=== PATIENT | male | born 1980 | race Caucasian/White ===

== ENCOUNTER 2022-03-05 10:50 | Inpatient (IN) ==
[2022-03-05 11:50] LABS: Basophils # (auto) 0.07 K/uL (0-0.2); Basophils % (auto) 0.5 %; Eosinophils # (auto) 0.14 K/uL (0-0.50); Eosinophils % (auto) 1.1 %; Hematocrit (blood only) 46.6 % (40.1-51.0); Hemoglobin 15.5 g/dl (14.0-18.0); Immature Granulocytes # (auto) 0.04 K/uL (0.00-0.02); Immature Granulocytes % (auto) 0.3 %; Lymphocytes # (auto) 1.73 K/uL (1.2-3.4); Lymphocytes % (auto) 13.1 %; Mean Corpuscular Hemoglobin 28.8 pg (25.0-34.0); Mean Corpuscular Hgb Conc 33.3 g/dL (32.0-36.0); Mean Corpuscular Volume 86.6 fL (80.0-100.0); Mean Platelet Volume 9.4 fL (9.4-12.4); Monocytes # (auto) 1.06 K/uL (0.24-0.82); Neutrophils # (auto) 10.19 K/uL (1.4-6.5); Platelet Count 417 K/uL (130-400); RDW Coefficient of Variation 12.4 % (11.5-14.5); RDW Standard Deviation 39.4 fL (36.4-46.3); Red Blood Count 5.38 M/uL (4.63-6.08); White Blood Count 13.23 K/ul (4.8-10.8)
--- NOTE | 2022-03-05 11:51 | XRay Report ---
XR chest 2V PA/lateral HISTORY: 42 years-old Male Chest pain, nonspecific acute chest pain COMPARISON: Chest radiograph 02/02/2022 TECHNIQUE: PA and lateral views of the chest FINDINGS: Mild left hemidiaphragmatic elevation again noted. Mild gaseous distention of the stomach. Moderate c ardiomegaly. Trace pleural effusions. No pneumothorax. Mild bibasilar densities and linear left midlu ng opacity. The previously questioned 1.3 center meter nodule of the right midlung is not identified. Degenerative changes of the shoulders and spine. IMPRESSION: 1. Cardiomegaly without overt pulmonary edema. 2. Trace pleural effusions with mild bibasilar and left midlung opacities suggestive of probable atel ectasis. 3. Mild left hemidiaphragmatic elevation. ACT 112: Negative or not required by law. The above report was generated using voice recognition software. It may contain grammatical, syntax o r spelling errors. Electronically signed by: Jn Rodrigues M.D. 03/05/2022 11:49 AM
[2022-03-05 12:08] LABS: D Dimer 2390 ug/L FEU (0-500)
[2022-03-05 12:12] LABS: Albumin Globulin Ratio 1.1 (0.9-2); Albumin Level 4.1 gm/dl (3.4-5.0); BUN Creatinine Ratio 14.1 (10-20); Bilirubin,Total 0.7 mg/dl (0.2-1.0); Calcium 9.7 mg/dl (8.5-10.1); Creatinine Clr Calc Pharmacy 121.6 ml/min; Est GFR (African American) 122.8 ml/min; Globulin 3.9 gm/dl (2.5-4.0); Potassium 4.1 mmol/L (3.5-5.1)
[2022-03-05 12:16] LABS: Troponin I High Sensitivity 3.4 pg/ml (0-20)
[2022-03-05 12:34] LABS: Influenza A virus by PCR Negative (Neg); Influenza B virus by PCR Negative (Neg); RSV by PCR Negative (Neg); SARS CoV2 RNA(COVID-19) Ceph NEGATIVE (Negative)
[2022-03-05] MEDS ORDERED: SODIUM CHLORIDE 0.9% 1000ML 1,000 ML IV ONE (12:49)
[2022-03-05] MEDS ORDERED: ONDANSETRON INJ 2 MG/ML 2 ML VIAL IV STA (12:49)
[2022-03-05] MEDS ORDERED: fentaNYL citrate 100 MCG/2 ML VIAL IV STA (12:49)
[2022-03-05] MEDS ORDERED: ACETAMINOPHEN 1,000 MG/100 ML VIAL IV STA (12:51)
--- NOTE | 2022-03-05 13:05 | Electrocardiogram Report ---
Test Reason : Blood Pressure : / mmHG Vent. Rate : 107 BPM Atrial Rate : 107 BPM P-R Int : 126 ms QRS Dur : 074 ms QT Int : 312 ms P-R-T Axes : 013 031 035 degrees QTc Int : 416 ms Sinus tachycardia Otherwise normal ECG When compared with ECG of 02-FEB-2022 13:38, No significant change was found Confirmed by Semaj Garcia ([id number]) on 03/05/2022 1:04:57 PM Referred By: ED Confirmed By:Haroldo Garcia
[2022-03-05] MEDS ORDERED: OPTIRAY 320 500ml IV ONE (13:10)
[2022-03-05] MEDS ORDERED: KETOROLAC 30 MG/ML VIAL IV STA (13:12)
[2022-03-05] MEDS ORDERED: HYDROmorphone INJ 0.5 MG/0.5 ML SYR IV STA (13:12)
[2022-03-05] MEDS ORDERED: AMPICILLIN/SULBACTAM SOD 3,000 MG in 0.9 % SODIUM CHLORIDE 100 ML IV STA (13:18)
--- NOTE | 2022-03-05 13:35 | Emergency Department Note ---
Impression & Plan Pneumonia, Tachycardia, Pleural effusion ED Provider Note CHIEF COMPLAINT: Left-sided chest pain HISTORY OF PRESENT ILLNESS: This 42-year-old male patient presents to the emergency department with complaints of left-sided chest pain that is most significant with deep breathing or coughing. Patient states he has been constipated for the last several days and been using laxatives without any improvement. He first noticed the discomfort in the left upper quadrant or left lower chest. Over the course of the last week the symptoms have gotten much worse now a 9/10. He has been unable to sleep, getting only an hour or 2 at a time. He sits upright as laying back hurts much more. He denies any significant fevers, vomiting or pain to touch. He states the pain is now radiating across the chest and into the shoulder blades. REVIEW OF SYSTEMS: A review of systems was performed with positives and pertinent negatives listed in the history of present illness. 10 systems were reviewed and are otherwise negative. ALLERGIES: see below MEDICATIONS: see below PMH: see below SOCIAL HISTORY: see below DDx: Cardiac ischemia, aortic dissection, pulmonary embolism, pneumothorax, pneumonia, pericarditis, myocarditis, esophageal rupture, GERD, cholecystitis, pancreatitis, musculoskeletal, as well as other pathologies. PHYSICAL EXAM: Vital signs reviewed. General: Somewhat ill-appearing 42 yo male, in no significant distress. HEENT: No scleral icterus, PERRLA, neck supple. Moist mucous membrane Cardiovascular: Tachycardic and regular, no extra sounds Pulmonary: Coarse breath sounds bilaterally, most significant at the left base. Splinting with deep inspiration and cough. Abdomen: Soft, nontender, nondistended, positive bowel sounds. Musculoskeletal: Atraumatic, no peripheral edema. Nontender to palpation over the chest wall and abdomen. No CVA tenderness. Neurologic: Patient awake alert and oriented x 3 Skin: Warm, dry, no rash EMERGENCY DEPARTMENT COURSE/MDM: This patient was evaluated and appeared to be in significant discomfort. IV access was obtained and laboratory work was drawn. The patient was placed on the panel monitor and noted to be in a sinus tachycardia. He was hydrated with normal saline solution, given IV acetaminophen, IV fentanyl and IV Zofran. CT imaging of the chest was performed and is read as pneumonia versus aspiration pneumonitis and pleural effusion on the left. Patient required additional pain medication and was having difficulty sitting still. Was given IV Dilaudid and Toradol upon his return. Blood cultures and lactate were performed and he was medicated with IV Unasyn after consultation with clinical pharmacist. Patient is a former smoker but quit several years ago. Patient is patient will require hospitalization for oxygen, pain medication and antibiotics. MONITORING: An order for cardiac monitoring was placed and the patient is noted to be in a sinus tachycardia at 112 beats per minute. RADIOLOGY: See below EKG: Sinus tachycardia [address] segments. No PVC, no PAC. QTc is 416. No significant change from previous dated 02/02/2022 DISPOSITION: Admit Past Med/Surg History Medical History Former tobacco use IBS (irritable bowel syndrome) Lactose intolerance Surgical History S/P hernia surgery Family History Grandmother (Maternal) Breast cancer Denies family history of Lung cancer Lung disease Social History Smoking Status: Former smoker Tobacco Type: Cigarettes Second Hand Exposure: No; Do You Dip or Chew Tobacco: No; Tobacco Cessation Education Requested by Patient: No Hx Alcohol Use: No Hx Substance Use: No Preferred Language: Haitian Communication Ability: Effective Tub Washer Required: No Beliefs That Will Affect Care: None Current Living Situation: Alone current occupational status: employed 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 Other Information That Helps Us Care for You: No Feels Safe at Home: Yes Safety Concerns: Feels Safe At This Time Assistive Devices: None Allergies Allergies Allergy/AdvReac Type Severity Reaction Status Date / Time cefepime Allergy Severe Hives Uncoded 03/05/22 18:32 Home Meds Previous Rx's Medication Instructions Recorded aztreonam 2 gram solution for 2 g IV Q8H #10 ea 03/05/22 injection doxycycline hyclate 100 mg 100 mg IV Q12H 10 days #10 ea 03/05/22 intravenous powder for solution Results & Data (ED) Vital Signs Vital Signs - 24 hr 03/05/22 11:06 03/05/22 13:08 03/05/22 13:30 Temperature 36.7 C Temperature Source Temporal Artery Scan Pulse Rate 110 H 118 H 112 H Pulse Rate from SpO2 Sensor 118 H 113 H Respiratory Rate 20 28 H 32 H Respiratory Effort / Characteristics Non-Labored Respiratory Depth Normal Blood Pressure 140/101 H 167/106 H Blood Pressure Mean 114 126 Pulse Oximetry 97 89 L 94 Oxygen Delivery Method Room Air Room Air Nasal Cannula Oxygen Flow Rate 3 Sepsis Recent Fever Within 48 Hours No Sepsis New/Unexplained Change in Mental Status N/A Sepsis Action Taken by Nursing No Action Required Home Medications Current Medication List: was personally reviewed by me Laboratory Data Attestation: I reviewed the patient's lab results. Result diagrams: 03/05/22 11:20 03/05/22 11:20 Lab Results 03/05/22 03/05/22 03/05/22 Range/Units 11:15 11:20 11:20 WBC 13.23 H (4.8-10.8) K/ul RBC 5.38 (4.63-6.08) M/uL Hgb 15.5 (14.0-18.0) g/dl Hct 46.6 (40.1-51.0) % MCV 86.6 (80.0-100.0) fL MCH 28.8 (25.0-34.0) pg MCHC 33.3 (32.0-36.0) g/dL RDW Std Deviation 39.4 (36.4-46.3) fL RDW Coeff of Fausto 12.4 (11.5-14.5) % Plt Count 417 H (130-400) K/uL MPV 9.4 (9.4-12.4) fL Immature Gran % (Auto) 0.3 % Neut % (Auto) 77.0 % Lymph % (Auto) 13.1 % Kleberg % (Auto) 8.0 % Eos % (Auto) 1.1 % Baso % (Auto) 0.5 % Neut # (Auto) 10.19 H (1.4-6.5) K/uL Lymph # (Auto) 1.73 (1.2-3.4) K/uL Kleberg # (Auto) 1.06 H (0.24-0.82) K/uL Eos # (Auto) 0.14 (0-0.50) K/uL Baso # (Auto) 0.07 (0-0.2) K/uL Immature Gran # (Auto) 0.04 H (0.00-0.02) K/uL D-Dimer (0-500) ug/L FEU Sodium 141 (136-145) mmol/L Potassium 4.1 (3.5-5.1) mmol/L Chloride 104 (98-107) mmol/L Carbon Dioxide 28 (21-32) mmol/L Anion Gap 9 (3-11) BUN 12 (6-23) mg/dl Creatinine 0.85 (0.6-1.4) mg/dl Est Cr Clr Drug Dosing 121.6 ml/min Est GFR ( Amer) 122.8 ml/min Est GFR (Non-Af Amer) 106.0 ml/min BUN/Creatinine Ratio 14.1 (10-20) Glucose 101 H (70-99(Fasting)) mg/dl Lactate (0.4-2.0) mmol/L Calcium 9.7 (8.5-10.1) mg/dl Total Bilirubin 0.7 (0.2-1.0) mg/dl AST 13 (13-39) U/L ALT 22 (7-52) U/L Alkaline Phosphatase 135 H (34-104) U/L Troponin I High Sens 3.4 (0-20) pg/ml Total Protein 8.0 (6.0-8.3) gm/dl Albumin 4.1 (3.4-5.0) gm/dl Globulin 3.9 (2.5-4.0) gm/dl Albumin/Globulin Ratio 1.1 (0.9-2) Procalcitonin (0-0.5) ng/ml SARS-CoV-2 (PCR) NEGATIVE (Negative) Influenza Type A (PCR) Negative (Neg) Influenza Type B (PCR) Negative (Neg) RSV (RT-PCR) Negative (Neg) Bld Cult ID Panel PCR (NotDetected) 03/05/22 03/05/22 03/05/22 Range/Units 11:20 11:20 14:44 WBC (4.8-10.8) K/ul RBC (4.63-6.08) M/uL Hgb (14.0-18.0) g/dl Hct (40.1-51.0) % MCV (80.0-100.0) fL MCH (25.0-34.0) pg MCHC (32.0-36.0) g/dL RDW Std Deviation (36.4-46.3) fL RDW Coeff of Fausto (11.5-14.5) % Plt Count (130-400) K/uL MPV (9.4-12.4) fL Immature Gran % (Auto) % Neut % (Auto) % Lymph % (Auto) % Kleberg % (Auto) % Eos % (Auto) % Baso % (Auto) % Neut # (Auto) (1.4-6.5) K/uL Lymph # (Auto) (1.2-3.4) K/uL Kleberg # (Auto) (0.24-0.82) K/uL Eos # (Auto) (0-0.50) K/uL Baso # (Auto) (0-0.2) K/uL Immature Gran # (Auto) (0.00-0.02) K/uL D-Dimer 2390 H* (0-500) ug/L FEU Sodium (136-145) mmol/L Potassium (3.5-5.1) mmol/L Chloride (98-107) mmol/L Carbon Dioxide (21-32) mmol/L Anion Gap (3-11) BUN (6-23) mg/dl Creatinine (0.6-1.4) mg/dl Est Cr Clr Drug Dosing ml/min Est GFR ( Amer) ml/min Est GFR (Non-Af Amer) ml/min BUN/Creatinine Ratio (10-20) Glucose (70-99(Fasting)) mg/dl Lactate 0.8 (0.4-2.0) mmol/L Calcium (8.5-10.1) mg/dl Total Bilirubin (0.2-1.0) mg/dl AST (13-39) U/L ALT (7-52) U/L Alkaline Phosphatase (34-104) U/L Troponin I High Sens (0-20) pg/ml Total Protein (6.0-8.3) gm/dl Albumin (3.4-5.0) gm/dl Globulin (2.5-4.0) gm/dl Albumin/Globulin Ratio (0.9-2) Procalcitonin < 0.05 (0-0.5) ng/ml SARS-CoV-2 (PCR) (Negative) Influenza Type A (PCR) (Neg) Influenza Type B (PCR) (Neg) RSV (RT-PCR) (Neg) Bld Cult ID Panel PCR (NotDetected) 03/05/22 Range/Units 14:44 WBC (4.8-10.8) K/ul RBC (4.63-6.08) M/uL Hgb (14.0-18.0) g/dl Hct (40.1-51.0) % MCV (80.0-100.0) fL MCH (25.0-34.0) pg MCHC (32.0-36.0) g/dL RDW Std Deviation (36.4-46.3) fL RDW Coeff of Fausto (11.5-14.5) % Plt Count (130-400) K/uL MPV (9.4-12.4) fL Immature Gran % (Auto) % Neut % (Auto) % Lymph % (Auto) % Kleberg % (Auto) % Eos % (Auto) % Baso % (Auto) % Neut # (Auto) (1.4-6.5) K/uL Lymph # (Auto) (1.2-3.4) K/uL Kleberg # (Auto) (0.24-0.82) K/uL Eos # (Auto) (0-0.50) K/uL Baso # (Auto) (0-0.2) K/uL Immature Gran # (Auto) (0.00-0.02) K/uL D-Dimer (0-500) ug/L FEU Sodium (136-145) mmol/L Potassium (3.5-5.1) mmol/L Chloride (98-107) mmol/L Carbon Dioxide (21-32) mmol/L Anion Gap (3-11) BUN (6-23) mg/dl Creatinine (0.6-1.4) mg/dl Est Cr Clr Drug Dosing ml/min Est GFR ( Amer) ml/min Est GFR (Non-Af Amer) ml/min BUN/Creatinine Ratio (10-20) Glucose (70-99(Fasting)) mg/dl Lactate (0.4-2.0) mmol/L Calcium (8.5-10.1) mg/dl Total Bilirubin (0.2-1.0) mg/dl AST (13-39) U/L ALT (7-52) U/L Alkaline Phosphatase (34-104) U/L Troponin I High Sens (0-20) pg/ml Total Protein (6.0-8.3) gm/dl Albumin (3.4-5.0) gm/dl Globulin (2.5-4.0) gm/dl Albumin/Globulin Ratio (0.9-2) Procalcitonin (0-0.5) ng/ml SARS-CoV-2 (PCR) (Negative) Influenza Type A (PCR) (Neg) Influenza Type B (PCR) (Neg) RSV (RT-PCR) (Neg) Bld Cult ID Panel PCR PCR Panel Negative (NotDetected) Administered Medications Discontinued Medications Acetaminophen (Acetaminophen 500 Mg Tab) 1,000 mg PO Q8 FER Stop: 04/04/22 21:59 Last Admin: 03/05/22 20:20 Dose: 1,000 mg Documented By: PRAMOD Cetirizine HCl (Cetirizine Hcl 10 Mg Tablet) 10 mg PO NOW ONE Stop: 03/05/22 18:34 Last Admin: 03/05/22 20:18 Dose: 10 mg Documented By: PRAMOD Diphenhydramine HCl (Diphenhydramine 50 Mg/Ml Vial) 50 mg IV NOW STA Stop: 03/05/22 18:31 Last Admin: 03/05/22 18:39 Dose: 50 mg Documented By: [id number] Diphenhydramine HCl (Diphenhydramine 50 Mg/Ml Vial) Confirm Administered Dose 50 mg .ROUTE .STK-MED ONE Stop: 03/05/22 18:39 Last Admin: 03/05/22 20:19 Dose: 50 mg Documented By: PRAMOD Fentanyl Citrate (Fentanyl Citrate 100 Mcg/2 Ml Vial) 100 mcg IV NOW STA Stop: 03/05/22 12:50 Last Admin: 03/05/22 12:53 Dose: 100 mcg Documented By: SALOME Guaifenesin (Guaifenesin 600 Mg Tabcr) 600 mg PO Q12 FER Stop: 04/04/22 20:59 Last Admin: 03/05/22 20:21 Dose: 600 mg Documented By: PRAMOD Hydromorphone HCl (Hydromorphone Inj 0.5 Mg/0.5 Ml Syr) 0.5 mg IV NOW STA Stop: 03/05/22 13:13 Last Admin: 03/05/22 13:17 Dose: 0.5 mg Documented By: SALOME Hydromorphone HCl (Hydromorphone Inj 0.5 Mg/0.5 Ml Syr) 0.5 mg IV Q4H PRN PRN Reason: Pain Stop: 03/19/22 15:21 Last Admin: 03/06/22 03:27 Dose: 0.5 mg Documented By: PRAMOD Sodium Chloride (Nss 1000ml) 1,000 mls @ 999 mls/hr IV .Q1H1M ONE Stop: 03/05/22 13:49 Last Infusion: 03/05/22 15:01 Dose: 0 mls/hr Documented By: Admin: 03/05/22 13:23 Dose: 999 mls/hr Documented By: SALOME Acetaminophen (Ofirmev) 1,000 mg in 100 mls @ 400 mls/hr IV NOW STA Stop: 03/05/22 13:05 Last Infusion: 03/05/22 14:21 Dose: 0 mls/hr Documented By: Admin: 03/05/22 13:22 Dose: 400 mls/hr Documented By: SALOME Ampicillin Sodium/Sulbactam Sodium 3,000 mg/ Sodium Chloride 108 mls @ 200 mls/hr IV NOW STA; Protocol Stop: 03/05/22 13:50 Last Infusion: 03/05/22 16:05 Dose: 0 mls/hr Documented By: Admin: 03/05/22 15:11 Dose: 200 mls/hr Documented By: SALOME Sodium Chloride (Nss 1000ml) 1,000 mls @ 125 mls/hr IV .Q8H FER Stop: 04/04/22 15:29 Last Admin: 03/06/22 02:10 Dose: 125 mls/hr Documented By: Infusion: 03/06/22 02:07 Dose: 125 mls/hr Documented By: Admin: 03/05/22 18:07 Dose: 125 mls/hr Documented By: [id number] Cefepime HCl 2,000 mg/ Syringe 20 mls @ 5 mls/min IV Q8H FER; Protocol Stop: 03/12/22 17:46 Last Admin: 03/05/22 18:09 Dose: 5 mls/min Documented By: [id number] Doxycycline Hyclate 100 mg/ (Dextrose) 110 mls @ 50 mls/hr IV Q12H [facility] Stop: 03/12/22 17:46 Last Infusion: 03/05/22 20:17 Dose: 0 mls/hr Documented By: Admin: 03/05/22 18:15 Dose: 50 mls/hr Documented By: [id number] Vancomycin HCl 2,000 mg/ (Sodium Chloride) 540 mls @ 200 mls/hr IV NOW ONE Stop: 03/05/22 20:28 Last Admin: 03/05/22 20:06 Dose: 200 mls/hr Documented By: PRAMOD Methylprednisolone 40 mg/ (Syringe) 0.64 mls @ 1.5 mls/min IV NOW STA Stop: 03/05/22 18:35 Last Admin: 03/05/22 20:18 Dose: 1.5 mls/min Documented By: PRAMOD Aztreonam 2,000 mg/ Dextrose 110 mls @ 100 mls/hr IV Q8H [facility]; Protocol Stop: 03/13/22 02:59 Last Infusion: 03/06/22 03:17 Dose: 0 mls/hr Documented By: Admin: 03/06/22 02:09 Dose: 100 mls/hr Documented By: PRAMOD Ioversol (Optiray 320 500ml) 114 ml IV ONCE ONE Stop: 03/05/22 13:11 Last Admin: 03/05/22 13:01 Dose: 114 ml Documented By: GRACE Ketorolac Tromethamine (Ketorolac 30 Mg/Ml Vial) 30 mg IV NOW STA Stop: 03/05/22 13:13 Last Admin: 03/05/22 13:20 Dose: 30 mg Documented By: SALOME Ketorolac Tromethamine (Ketorolac 30 Mg/Ml Vial) 30 mg IV Q6H PRN PRN Reason: Pain Stop: 03/10/22 15:21 Last Admin: 03/05/22 23:30 Dose: 30 mg Documented By: Admin: 03/05/22 18:05 Dose: 30 mg Documented By: [id number] Ondansetron HCl (Ondansetron Inj 2 Mg/Ml 2 Ml Vial) 4 mg IV NOW STA Stop: 03/05/22 12:50 Last Admin: 03/05/22 12:53 Dose: 4 mg Documented By: MT Imaging Data Radiologist's Impression: Chest X-Ray 03/05/22 11:10 XR chest 2V PA/lateral HISTORY: 42 years-old Male Chest pain, nonspecific acute chest pain COMPARISON: Chest radiograph 02/02/2022 TECHNIQUE: PA and lateral views of the chest FINDINGS: Mild left hemidiaphragmatic elevation again noted. Mild gaseous distention of the stomach. Moderate cardiomegaly. Trace pleural effusions. No pneumothorax. Mild bibasilar densities and linear left midlung opacity. The previously questioned 1.3 center meter nodule of the right midlung is not identified. Degenerative changes of the shoulders and spine. IMPRESSION: 1. Cardiomegaly without overt pulmonary edema. 2. Trace pleural effusions with mild bibasilar and left midlung opacities suggestive of probable atelectasis. 3. Mild left hemidiaphragmatic elevation. ACT 112: Negative or not required by law. The above report was generated using voice recognition software. It may contain grammatical, syntax or spelling errors. Electronically signed by: Jn Rodrigues M.D. 03/05/2022 11:49 AM Blood Pressure Blood Pressure Findings: Elevated blood pressure Blood Pressure Disposition: Referred to patients primary care provider Discharge Plan Visit Data Chief Complaint: Chest Pain Stated Complaint: CHEST PAIN, SOB ED Provider: Elizabeth Loja Discharge Problem: Pneumonia, Tachycardia, Pleural effusion Patient Disposition: Admitted As Inpatient Discharge Instructions Interventions: ED Discharge Assessment Last Done: 03/05/22 17:08
--- NOTE | 2022-03-05 13:39 | CT Scan Report ---
CT ANGIOGRAM OF THE CHEST CLINICAL HISTORY: Atypical chest pain. Dyspnea. Elevated d-dimer. COMPARISON STUDY: Chest x-ray dated 03/05/2022. TECHNIQUE: Following the IV administration of 114 cc of Optiray 320, CT angiogram of the chest was pe rformed from the upper abdomen to the thoracic inlet utilizing the pulmonary embolus protocol. Images are reviewed in the axial, sagittal, and coronal planes. 3-D MIPS images are created and assessed. I V contrast was administered without complication. A dose lowering technique was utilized adhering to the principles of ALARA. The examination is severely degraded by motion artifact. CT DOSE: 647.76 mGy.cm FINDINGS: Thyroid: Imaged portions of the thyroid gland are normal in size and attenuation. Thoracic aorta: The thoracic aorta is normal in caliber and demonstrates standard 3-vessel arch anato my. No dissection is seen. Pulmonary vasculature: The pulmonary trunk is normal in caliber. There are no filling defects identif ied in main or lobar pulmonary branches to suggest pulmonary embolus. The segmental and subsegmental branches are not well assessed due to severe motion artifact. Heart: The heart is normal in size and without pericardial effusion. Lungs and pleural spaces: There is a small left pleural effusion with dense left basilar consolidatio n. Loculated fluid is seen tracking along the left major fissure as well as at the left apex the righ t lung is grossly clear. The trachea appears patent. Mediastinum: There is no mediastinal lymphadenopathy. Kylie: Clear. Axillae: There is no axillary lymphadenopathy. Upper abdomen: Partially visualized upper abdominal viscera is within normal limits. Skeletal structures: No lytic or blastic bony lesions are seen. Soft tissues: A 2.3 cm sebaceous cyst is seen in the mid back. IMPRESSION: 1. Severely motion compromised examination. 2. There is no evidence of central pulmonary embolus in the main or lobar pulmonary arteries. The seg mental and subsegmental branches are not well evaluated. 3. Left pleural effusion with dense left basilar consolidation. The sclerosis and atelectasis versus pneumonia/aspiration pneumonitis. Clinical correlation will be required and radiographic follow-up to resolution is recorded. 4. Loculated pleural fluid tracks along left major fissure and is seen at the left apex. 5. The right lung is grossly clear. ACT 112: Negative or not required by law. Electronically signed by: Mj Urbina M.D. 03/05/2022 1:37 PM
--- NOTE | 2022-03-05 15:18 | History & Physical Report ---
Date of Service March 05, 2022 Assessment & Plan (1) Pneumonia: Plan: 42 y/o male with no significant pulmonary PMH who presented to the ED with one week of left-sided pleuritic pain, worsening over last 48 hours. Imaging in the ED shows probable loculated left pleural effusion and pneumonia. Meets sepsis criteria based on tachycardiac, tachypnea, leukocytosis on presentation although has significantly improved already with pain control, empiric antibiotics and IVF. Lactate was negative. - Admit to PCU - Broad-spectrum empiric IV antibiotics (cefepime, doxycycline, vanco) including MRSA coverage for now - waiting on blood cultures and MRSA swab. - Continue supplemental oxygen - pt reports improvement in symptoms with oxygen therapy - Will use scheduled acetaminophen, prn Toradol and Dilaudid for pain - Incentive spirometry, flutter valve - Consult pulmonology for additional recommendations - Daily labs - Sputum culture if cough becomes productive - Continue IVF (2) Sepsis: (3) Left-sided chest pain: (4) Former tobacco use: Plan Pt seen and reviewed with attending physician, Dr. Canada. Plan of care discussed and as outlined above. Code Status: Full Code DVT Prophylaxis: Fouzia Robison PA-C History of Present Illness Chief Complaint: Chest pain x 1 week Primary Care Provider: NO PCP This is a 42 y/o male with a PMH of IBS and prior tobacco use who presented to the ED with one week of left flank and left chest pain. Pt reports the pain started about a week ago in his left "side" and was present constantly though did wax and wane in severity. Initially he thought it may be due to constipation as his bowel pattern changed from 10+ times per day (due to IBS) to once a day and only a small amount. He has also noted early satiety but denies nausea or vomiting. He has an associated non-productive cough, may come in fits . Only lightheadedness is associated with a coughing fit. Pain is worse with deep breathing which has resulted in some shortness of breath. Otherwise, he reports breathing has been okay. He has noted some chills but no documented fevers or sweats. Yesterday, the pain started in his left chest as well, radiated to left shoulder and left jaw. This morning, pain was more severe so he came to the ED for evaluation. He denies prior history of similar pain. No prior hx of pneumonia. No known sick contacts. No recent travel. No chemical or asbestosis exposures that he's aware of. He smoked from age 12 to 34, quit 8 years ago. He had frequent "bronchitis" as a kid but no issues as an adult. He denies recent LE edema, palpitations, syncope. Not sleeping well due to pain. Pain seems worse with lying flat, better with sitting up straight. Allergies Allergy/AdvReac Type Severity Reaction Status Date / Time cefepime Allergy Severe Hives Uncoded 03/05/22 18:32 Home Medications Medication Instructions Recorded Confirmed Type No Known Home Medications 03/05/22 03/05/22 History Past Med/Surg History Medical History (Updated 03/05/22 @ 17:20 by Lexi Robison PA-C) Former tobacco use IBS (irritable bowel syndrome) Lactose intolerance Surgical History S/P hernia surgery Family History Grandmother (Maternal) Breast cancer Denies family history of Lung cancer Lung disease Social History Smoking Status: Former smoker Tobacco Type: Cigarettes Second Hand Exposure: No; Do You Dip or Chew Tobacco: No; Tobacco Cessation Education Requested by Patient: No Hx Alcohol Use: No Hx Substance Use: No Preferred Language: Brazilian Communication Ability: Effective Food Sales Clerk Required: No Beliefs That Will Affect Care: None Current Living Situation: Alone current occupational status: employed 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 Other Information That Helps Us Care for You: No Feels Safe at Home: Yes Safety Concerns: Feels Safe At This Time Assistive Devices: None Review of Systems Review of Systems: All systems reviewed & are unremarkable except as noted in HPI & below Constitutional: + chills, + fatigue and + anorexia; no fever and no sweats Eyes: no diplopia and no worsening vision Ear, Nose, Mouth, Throat: + dry mouth; no nasal congestion and no sore throat Respiratory: as per Subjective / HPI; no hemoptysis and no wheezing Cardiovascular: as per Subjective / HPI; no palpitations, no syncope and no edema Gastrointestinal: no nausea, no vomiting and no blood in stools Genitourinary: no dysuria or no hematuria Musculoskeletal: no back pain and no neck pain Integumentary: no rash and no yellowing of the skin Neurologic: no seizure-like activity and no headache(s) Psychiatric: no depression and no anxiety Physical Exam Constitutional: well developed and well nourished; no acute distress Eyes: + anicteric sclerae Neck: trachea midline Respiratory: no respiratory distress, no labored breathing and does not use accessory muscles Auscultation: + diminished lung sounds; no wheezes Cardiovascular: Rate/Rhythm: regular rhythm and + tachycardic Heart Sounds: no murmur Vessels: dorsalis pedis pulses present and radial pulses present Extremities: no pedal edema No chest wall tenderness Gastrointestinal (Abdomen): Inspection/Auscultation: normal bowel sounds; abdomen not distended Percussion/Palpation: abdomen soft; abdomen nontender Musculoskeletal: Head/Neck/Chest: normocephalic, head atraumatic and neck supple Skin: no jaundice Neurologic: moves all extremities; no focal motor deficits and not confused Psychiatric: A+Ox3, euthymic affect Results & Data Results & Data ([facility]) Vital Signs (Past 12 Hours) Vital Signs Temp Pulse Resp BP Pulse Ox O2 Del Method O2 Flow Rate 03/05/22 15:00 103 H 19 94 03/05/22 15:00 143/83 H 03/05/22 14:30 112 H 20 138/72 94 Room Air 03/05/22 14:00 107 H 21 123/76 92 Room Air 03/05/22 13:30 112 H 32 H 94 Nasal Cannula 3 03/05/22 13:08 118 H 28 H 167/106 H 89 L Room Air 03/05/22 11:06 36.7 C 110 H 20 140/101 H 97 Room Air Laboratory Results Laboratory Results - last 24 hr 03/05/22 03/05/22 03/05/22 11:15 11:20 11:20 WBC 13.23 H RBC 5.38 Hgb 15.5 Hct 46.6 MCV 86.6 MCH 28.8 MCHC 33.3 RDW Std Deviation 39.4 RDW Coeff of Fausto 12.4 Plt Count 417 H MPV 9.4 Immature Gran % (Auto) 0.3 Neut % (Auto) 77.0 Lymph % (Auto) 13.1 [place] % (Auto) 8.0 Eos % (Auto) 1.1 Baso % (Auto) 0.5 Neut # (Auto) 10.19 H Lymph # (Auto) 1.73 [place] # (Auto) 1.06 H Eos # (Auto) 0.14 Baso # (Auto) 0.07 Immature Gran # (Auto) 0.04 H D-Dimer Sodium 141 Potassium 4.1 Chloride 104 Carbon Dioxide 28 Anion Gap 9 BUN 12 Creatinine 0.85 Est Cr Clr Drug Dosing 121.6 Est GFR ( Amer) 122.8 Est GFR (Non-Af Amer) 106.0 BUN/Creatinine Ratio 14.1 Glucose 101 H Lactate Calcium 9.7 Total Bilirubin 0.7 AST 13 ALT 22 Alkaline Phosphatase 135 H Troponin I High Sens 3.4 Total Protein 8.0 Albumin 4.1 Globulin 3.9 Albumin/Globulin Ratio 1.1 Procalcitonin SARS-CoV-2 (PCR) NEGATIVE Influenza Type A (PCR) Negative Influenza Type B (PCR) Negative RSV (RT-PCR) Negative 03/05/22 03/05/22 03/05/22 11:20 11:20 14:44 WBC RBC Hgb Hct MCV MCH MCHC RDW Std Deviation RDW Coeff of Fausto Plt Count MPV Immature Gran % (Auto) Neut % (Auto) Lymph % (Auto) [place] % (Auto) Eos % (Auto) Baso % (Auto) Neut # (Auto) Lymph # (Auto) [place] # (Auto) Eos # (Auto) Baso # (Auto) Immature Gran # (Auto) D-Dimer 2390 H* Sodium Potassium Chloride Carbon Dioxide Anion Gap BUN Creatinine Est Cr Clr Drug Dosing Est GFR ( Amer) Est GFR (Non-Af Amer) BUN/Creatinine Ratio Glucose Lactate Pending Calcium Total Bilirubin AST ALT Alkaline Phosphatase Troponin I High Sens Total Protein Albumin Globulin Albumin/Globulin Ratio Procalcitonin Pending SARS-CoV-2 (PCR) Influenza Type A (PCR) Influenza Type B (PCR) RSV (RT-PCR) Diagnostic Findings Chest X-ray 03/05/22 - IMPRESSION: 1. Cardiomegaly without overt pulmonary edema. 2. Trace pleural effusions with mild bibasilar and left midlung opacities suggestive of probable atelectasis. 3. Mild left hemidiaphragmatic elevation. CTA Chest 03/05/22 - IMPRESSION: 1. Severely motion compromised examination. 2. There is no evidence of central pulmonary embolus in the main or lobar pulmonary arteries. The segmental and subsegmental branches are not well evaluated. 3. Left pleural effusion with dense left basilar consolidation. The sclerosis and atelectasis versus pneumonia/aspiration pneumonitis. Clinical correlation will be required and radiographic follow-up to resolution is recorded. 4. Loculated pleural fluid tracks along left major fissure and is seen at the left apex. 5. The right lung is grossly clear. Medications Administered Discontinued Medications Fentanyl Citrate (Fentanyl Citrate 100 Mcg/2 Ml Vial) 100 mcg IV NOW STA Stop: 03/05/22 12:50 Last Admin: 03/05/22 12:53 Dose: 100 mcg Documented By: MT Hydromorphone HCl (Hydromorphone Inj 0.5 Mg/0.5 Ml Syr) 0.5 mg IV NOW STA Stop: 03/05/22 13:13 Last Admin: 03/05/22 13:17 Dose: 0.5 mg Documented By: MT Sodium Chloride (Nss 1000ml) 1,000 mls @ 999 mls/hr IV .Q1H1M ONE Stop: 03/05/22 13:49 Last Infusion: 03/05/22 15:01 Dose: 0 mls/hr Documented By: Admin: 03/05/22 13:23 Dose: 999 mls/hr Documented By: MT Acetaminophen (Ofirmev) 1,000 mg in 100 mls @ 400 mls/hr IV NOW STA Stop: 03/05/22 13:05 Last Infusion: 03/05/22 14:21 Dose: 0 mls/hr Documented By: Admin: 03/05/22 13:22 Dose: 400 mls/hr Documented By: MT Ampicillin Sodium/Sulbactam Sodium 3,000 mg/ Sodium Chloride 108 mls @ 200 mls/hr IV NOW STA; Protocol Stop: 03/05/22 13:50 Last Admin: 03/05/22 15:11 Dose: 200 mls/hr Documented By: SALOME Ioversol (Optiray 320 500ml) 114 ml IV ONCE ONE Stop: 03/05/22 13:11 Last Admin: 03/05/22 13:01 Dose: 114 ml Documented By: GRACE Ketorolac Tromethamine (Ketorolac 30 Mg/Ml Vial) 30 mg IV NOW STA Stop: 03/05/22 13:13 Last Admin: 03/05/22 13:20 Dose: 30 mg Documented By: MT Ondansetron HCl (Ondansetron Inj 2 Mg/Ml 2 Ml Vial) 4 mg IV NOW STA Stop: 03/05/22 12:50 Last Admin: 03/05/22 12:53 Dose: 4 mg Documented By: MT Supervising Physician Co-Signing Physician Notes Attending Addendum: care coordinated with ARNAV Robison please refer to her notes for full details, I agree with her notes patient seen and examined, records reviewed by myself as well on exam, patient seen sitting up in bed, not in distress, states left-sided chest pain, sharp, stabbing seems to be returning No shortness of breath no other symptoms VS noted and reviewed oriented x3, not in distress, speaks in sentences with no effort nor accessory muscle use normal rate, regular rhythm, no murmurs Crackles on the left base, clear on the right non distended, soft, nontender no bipedal edema, erythema, warmth no neuro deficits Labs noted and reviewed ASSESSMENT AND PLAN Sepsis, left-sided pneumonia, loculated effusion Follow-up blood cultures, sputum culture Follow-up MRSA nasal swab Patient developed rash after administration of cefepime, changed to IV aztreonam (Also given diphenhydramine IV, Solu-Medrol IV, Zyrtec p.o.) Continue vancomycin IV and doxycycline IV Annual Campaign Manager Dr. Gage consulted Recommends drainage of loculated effusion via interventional radiology Recommend transfer patient to tertiary level of care Discussed with patient medical condition plan of care Patient understanding and agreeable of above, including transfer to tertiary level of care for IR guided drainage of loculated effusion Awaiting callback from [facility] transfer service other diagnoses and plan of care as per ARNAV Robison's notes Josiah Canada MD
[2022-03-05] MEDS ORDERED: HYDROmorphone INJ 0.5 MG/0.5 ML SYR IV PRN (15:22)
[2022-03-05 16:59] LABS: Appearance Urine Clear (Clear); Bilirubin Urine Negative (Negative); Blood Urine Negative (Negative); Color Urine Yellow; Glucose Urine UA Negative (Negative); Ketones Urine Negative (Negative); Leukocyte Esterase Urine Negative (Negative); Nitrite Urine Negative (Negative); Protein Urine Negative (Negative); Urobilinogen Urine Negative (Negative)
[2022-03-05] MEDS ORDERED: VANCOMYCIN CONSULT ACTIVE PRN (17:47)
[2022-03-05] MEDS ORDERED: DOXYCYCLINE HYCLATE 100 MG in DEXTROSE 5% 100 ML IV SCH (17:47)
[2022-03-05] MEDS ORDERED: CEFEPIME 2,000 MG in SYRINGE 0 ML IV SCH (17:47)
[2022-03-05] MEDS: KETOROLAC 30 MG/ML VIAL IV PRN ×2 (18:05→23:30)
[2022-03-05] MEDS: SODIUM CHLORIDE 0.9% 1000ML 1,000 ML IV SCH (18:07)
[2022-03-05] MEDS ORDERED: diphenhydrAMINE 50 MG/ML VIAL IV STA (18:30)
[2022-03-05] MEDS ORDERED: CETIRIZINE HCL 10 MG TABLET PO ONE (18:33)
[2022-03-05] MEDS ORDERED: methylPREDNISolone 40 MG in SYRINGE 0 ML IV STA (18:34)
[2022-03-05] MEDS ORDERED: diphenhydrAMINE 50 MG/ML VIAL ONE (18:38)
--- NOTE | 2022-03-05 19:42 | Discharge Summary ---
Discharge Summary Date of Service March 05, 2022 Notes For Next Care Provider Medication Changes From Visit Vancomycin IV Aztreonam IV Doxycycline IV Admission HPI Per Admitting Provider This is a 42 y/o male with a PMH of IBS and prior tobacco use who presented to the ED with one week of left flank and left chest pain. Pt reports the pain started about a week ago in his left "side" and was present constantly though did wax and wane in severity. Initially he thought it may be due to constipation as his bowel pattern changed from 10+ times per day (due to IBS) to once a day and only a small amount. He has also noted early satiety but denies nausea or vomiting. He has an associated non-productive cough, may come in fits. Only lightheadedness is associated with a coughing fit. Pain is worse with deep breathing which has resulted in some shortness of breath. Otherwise, he reports breathing has been okay. He has noted some chills but no documented fevers or sweats. Yesterday, the pain started in his left chest as well, radiated to left shoulder and left jaw. This morning, pain was more severe so he came to the ED for evaluation. He denies prior history of similar pain. No prior hx of pneumonia. No known sick contacts. No recent travel. No chemical or asbestosis exposures that he's aware of. He smoked from age 12 to 34, quit 8 years ago. He had frequent "bronchitis" as a kid but no issues as an adult. He denies recent LE edema, palpitations, syncope. Not sleeping well due to pain. Pain seems worse with lying flat, better with sitting up straight.Allergies Allergy/AdvReac Type Severity Reaction Status Date / Time cefepime Allergy Severe Hives Uncoded 03/05/22 18:32 Home Medications Medication Instructions Recorded Confirmed Type No Known Home Medications 03/05/22 03/05/22 History Past Med/Surg History Medical History(Updated 03/05/22 @ 17:20 by Lexi Robison PA-C) Former tobacco use IBS (irritable bowel syndrome) Lactose intolerance Surgical History S/P hernia surgery Family History Grandmother (Maternal) Breast cancerDenies family history of Lung cancer Lung disease Social History Smoking Status: Former smoker Tobacco Type: Cigarettes Second Hand Exposure: No; Do You Dip or Chew Tobacco: No; Tobacco Cessation Education Requested by Patient: No Hx Alcohol Use: No Hx Substance Use: No Preferred Language: Icelandic Communication Ability: Effective In Store Representative Required: No Beliefs That Will Affect Care: None Current Living Situation: Alone current occupational status: employed 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 Other Information That Helps Us Care for You: No Feels Safe at Home: Yes Safety Concerns: Feels Safe At This Time Assistive Devices: None Review of Systems Review of Systems: All systems reviewed & are unremarkable except as noted in HPI & below Constitutional: + chills, + fatigue and + anorexia; no f ever and no sweats Eyes: no diplopia and no worsening vision Ear, Nose, Mouth, Throat: + dry mouth; no nasal congestion and no sore throat Respiratory: as per Subjective / HPI; no hemoptysis and no wheezing Cardiovascular: as per Subjective / HPI; no palpitations, no syncope and no edema Gastrointestinal: no nausea, no vomiting and no blood in stools Genitourinary:J no dysuria or no hematuria Musculoskeletal: no back pain and no neck pain Integumentary: no rash and no yellowing of the skin Neurologic: no seizure-like activity and no headache(s) Psychiatric: no depression and no anxiety Admission Exam Per Admitting Provider Physical Exam Constitutional: well developed and well nourished; no acute distress Eyes: + anicteric sclerae Neck: trachea midline Respiratory: no respiratory distress, no labored breathing and does not use accessory muscles Auscultation: + diminished lung sounds; no wheezes Cardiovascular: Rate/Rhythm: regular rhythm and + tachycardic Heart Sounds: no murmur Vessels: dorsalis pedis pulses present and radial pulses present Extremities: no pedal edema No chest wall tenderness Gastrointestinal (Abdomen): Inspection/Auscultation: normal bowel sounds; abdomen not distended Percussion/Palpation: abdomen soft; abdomen nontender Musculoskeletal: Head/Neck/Chest: normocephalic, head atraumatic and neck supple Skin: no jaundice Neurologic: moves all extremities; no focal motor deficits and not confused Psychiatric: A+Ox3, euthymic affect Principal Dx & Hospital Course #1 = Principal Diagnosis (1) Pneumonia: (1) Pneumonia: Plan: 42 y/o male with no significant pulmonary PMH who presented to the ED with one week of left-sided pleuritic pain, worsening over last 48 hours. Imaging in the ED shows probable loculated left pleural effusion and pneumonia. Meets sepsis criteria based on tachycardiac, tachypnea, leukocytosis on presentation although has significantly improved already with pain control, empiric antibiotics and IVF. Lactate was negative. - Admit to PCU - Broad-spectrum empiric IV antibiotics (cefepime, doxycycline, vanco) including MRSA coverage for now - waiting on blood cultures and MRSA swab. - Continue supplemental oxygen - pt reports improvement in symptoms with oxygen therapy - Will use scheduled acetaminophen, prn Toradol and Dilaudid for pain - Incentive spirometry, flutter valve - Consult pulmonology for additional recommendations - Daily labs - Sputum culture if cough becomes productive - Continue IVF (2) Sepsis: (3) Left-sided chest pain: (4) Former tobacco use: Supervising Physician Co-Signing Physician Notes Attending Addendum: care coordinated with ARNAV Robison please refer to her notes for full details, I agree with her notes patient seen and examined, records reviewed by myself as well on exam, patient seen sitting up in bed, not in distress, states left-sided chest pain, sharp, stabbing seems to be returning No shortness of breath no other symptoms VS noted and reviewed oriented x3, not in distress, speaks in sentences with no effort nor accessory muscle use normal rate, regular rhythm, no murmurs Crackles on the left base, clear on the right non distended, soft, nontender no bipedal edema, erythema, warmth no neuro deficits Labs noted and reviewed ASSESSMENT AND PLAN Sepsis, left-sided pneumonia, loculated effusion Follow-up blood cultures, sputum culture Follow-up MRSA nasal swab Patient developed rash after administration of cefepime, changed to IV aztreonam (Also given diphenhydramine IV, Solu-Medrol IV, Zyrtec p.o.) Continue vancomycin IV and doxycycline IV Truck Driver Flat[employer] Dr. Gage consulted Recommends drainage of loculated effusion via interventional radiology Recommend transfer patient to tertiary level of care Discussed with patient medical condition plan of care Patient understanding and agreeable of above, including transfer to tertiary level of care for IR guided drainage of loculated effusion Awaiting callback from [facility] transfer service other diagnoses and plan of care as per ARNAV Robison's notes Josiah Canada MD Updated Medication List Medication Instructions Recorded Confirmed Type aztreonam 2 gram solution for 2 g IV Q8H #10 ea 03/05/22 Rx injection doxycycline hyclate 100 mg 100 mg IV Q12H 10 days #10 ea 03/05/22 Rx intravenous powder for solution Hospital Stay Data Consultations 03/05/22 14:56 ED Decision to Admit Stat 03/05/22 17:47 Consult Pulmonology Routine Diagnostic Imagining Performed 03/05/22 12:09 CT angio chest PE protocol Stat CLINICAL HISTORY: Atypical chest pain. Dyspnea. Elevated d-dimer. COMPARISON STUDY: Chest x-ray dated 03/05/2022. TECHNIQUE: Following the IV administration of 114 cc of Optiray 320, CT angiogram of the chest was performed from the upper abdomen to the thoracic inlet utilizing the pulmonary embolus protocol. Images are reviewed in the axial, sagittal, and coronal planes. 3-D MIPS images are created and assessed. IV contrast was administered without complication. A dose lowering technique was utilized adhering to the principles of ALARA. The examination is severely degraded by motion artifact. CT DOSE: 647.76 mGy.cm FINDINGS: Thyroid: Imaged portions of the thyroid gland are normal in size and attenuation. Thoracic aorta: The thoracic aorta is normal in caliber and demonstrates standard 3-vessel arch anatomy. No dissection is seen. Pulmonary vasculature: The pulmonary trunk is normal in caliber. There are no filling defects identified in main or lobar pulmonary branches to suggest pulmonary embolus. The segmental and subsegmental branches are not well assessed due to severe motion artifact. Heart: The heart is normal in size and without pericardial effusion. Lungs and pleural spaces: There is a small left pleural effusion with dense left basilar consolidation. Loculated fluid is seen tracking along the left major fissure as well as at the left apex the right lung is grossly clear. The trachea appears patent. Mediastinum: There is no mediastinal lymphadenopathy. Kylie: Clear. Axillae: There is no axillary lymphadenopathy. Upper abdomen: Partially visualized upper abdominal viscera is within normal limits. Skeletal structures: No lytic or blastic bony lesions are seen. Soft tissues: A 2.3 cm sebaceous cyst is seen in the mid back. IMPRESSION: 1. Severely motion compromised examination. 2. There is no evidence of central pulmonary embolus in the main or lobar pulmonary arteries. The segmental and subsegmental branches are not well evaluated. 3. Left pleural effusion with dense left basilar consolidation. The sclerosis and atelectasis versus pneumonia/aspiration pneumonitis. Clinical correlation will be required and radiographic follow-up to resolution is recorded. 4. Loculated pleural fluid tracks along left major fissure and is seen at the left apex. 5. The right lung is grossly clear. ACT 112: Negative or not required by law. Pending Results Patient Have Any Pending Studies at Discharge: Yes Discharge Instructions Given to Patient (Per Discharging Provider) please refer to accompanying hospital discharge summary Total Time Total Time Spent Total Time Spent (In Minutes): >30 minutes
[2022-03-05] MEDS: VANCOMYCIN HCL 2,000 MG in SODIUM CHLORIDE 0.9% 500 ML IV ONE ×2 (20:06→20:18)
[2022-03-05] MEDS ORDERED: guaiFENesin 600 MG TABCR PO SCH (21:00)
--- NOTE | 2022-03-05 21:10 | Communication Note ---
Date of Service: March 05, 2022 Patient not seen, but full consult to follow if patient still in house. CT reviewed in detail. Left pleural effusion is loculated and extremely difficult to drain. High concern of empyema. Recommend empiric abx and transfer to tertiary care for further expertise and more options for drainage i.e. IR, interventional pulm or thoracic for vats.
[2022-03-05] MEDS ORDERED: ACETAMINOPHEN 500 MG TAB PO SCH (22:00)
[2022-03-06] MEDS: SODIUM CHLORIDE 0.9% 1000ML 1,000 ML IV SCH (02:10)
[2022-03-06] MEDS ORDERED: AZTREONAM 2,000 MG in DEXTROSE 5% 100 ML IV SCH (03:00)
[2022-03-06] MEDS ORDERED: VANCOMYCIN HCL 1,500 MG in SODIUM CHLORIDE 0.9% 500 ML IV SCH (06:00)
[2022-03-06] MEDS ORDERED: ENOXAPARIN INJ 40 MG/0.4 ML SYR SQ SCH (09:00)
[2022-03-10 09:19] LABS: A calco-baum cmplx NotReported Not Detected (NotDetected); Bact fragilis Not Reported Not Detected (NotDetected); C auris Not Reported Not Detected (NotDetected); Calbicans Not Reported Not Detected (NotDetected); Candida glabrata Not Reported Not Detected (NotDetected); Candida krusei Not Reported Not Detected (NotDetected); Cneoformans/gatti Not Reported Not Detected (NotDetected); Cparapsilosis Not Reported Not Detected (NotDetected); Ctropicalis Not Reported Not Detected (NotDetected); E cloacae compx Not Reported Not Detected (NotDetected); Efaecalis Not Reported Not Detected (NotDetected); Efaecium Not Reported Not Detected (NotDetected); Enterobacterales Not Reported Not Detected (NotDetected); Escherichia coli Not Reported Not Detected (NotDetected); H influenzae Not Reported Not Detected (NotDetected); K aerogenes Not Reported Not Detected (NotDetected); Koxytoca Not Reported Not Detected (NotDetected); Kpneumoniae grp Not Reported Not Detected (NotDetected); Lmonocyt Not Reported Not Detected (NotDetected); N meningitidis Not Reported Not Detected (NotDetected); P aeruginosa Not Reported Not Detected (NotDetected); Proteus spp Not Reported Not Detected (NotDetected); Salmonella spp Not Reported Not Detected (NotDetected); Smarcescens Not Reported Not Detected (NotDetected); Staph lugdunensis Not Reported Not Detected (NotDetected); Staph spp. Not Reported Not Detected (NotDetected); Staphaureus Not Reported Not Detected (NotDetected); Staphepi Not Reported Not Detected (NotDetected); Stenmaltophilia Not Reported Not Detected (NotDetected); Strep agal(GrpB) Not Reported Not Detected (NotDetected); Strep pneum Not Reported Not Detected (NotDetected); Strep pyog (GrpA) Not Reported Not Detected (NotDetected); Strep spp Not Reported Not Detected (NotDetected)
== END 2022-03-06 03:38 | disposition short-term general hospital (02) | DRG 871 ==
LOC: ED 10:50 → 2S 15:22